=== PATIENT | female | born 1945 | race Caucasian/White ===

== ENCOUNTER → 2016-07-17 | Outpatient (CLI) | payer MEDICARE, OTHER ==
[~2016-07-17] MED LIST: AQUAPHOR OINTM396 GM TOP; COREG25 MG PO; ESTRADIOL0.5 MG PO; EXCEDRIN EXTRA1 TAB PO; HYZAAR 50-12.51 EACH PO; LOSARTAN-HCTZ1 EAC2 PO; NORCO 5-325 TA1 EACH PO; STOOL SOFTENER1 EACH PO; XELODA500 MG PO; ZOFRAN ODT8 MG PO
== END | disposition disaster alternative care site (69) ==
LOC: GBCOE 11:19
DX: Z12.31 Encounter for screening mammogram for malignant neoplasm of breast (principal)
CPT/HCPCS: G0202

== ENCOUNTER → 2016-07-31 | Day surgery (SDC) | payer MEDICARE, OTHER ==
[~2016-07-31] VITALS: Ht 160 cm; Wt 53.7 kg
== END | disposition disaster alternative care site (69) ==
LOC: GPOC 07-24 15:00 → GEND 07:05 → GPOC 07:30
PROC: 0DBP8ZX Excision of Rectum, Via Natural or Artificial Opening Endoscopic, Diagnostic (ICD-10-PCS; principal; 2016-07-31)
DX: Z12.11 Encounter for screening for malignant neoplasm of colon (principal); D12.8 Benign neoplasm of rectum; I10 Essential (primary) hypertension; Z87.891 Personal history of nicotine dependence; Z79.899 Other long term (current) drug therapy
CPT/HCPCS: J7030

== ENCOUNTER → 2016-08-06 | Outpatient (CLI) | payer MEDICARE, OTHER | END | disposition disaster alternative care site (69) | LOC: GRAD 09:29 | DX: K62.9 Disease of anus and rectum, unspecified (principal) | CPT/HCPCS: Q9967 ==

== ENCOUNTER → 2016-08-25 | Outpatient (CLI) | payer MEDICARE, OTHER ==
[2016-08-25 09:22] LABS: ALBUMIN 3.5 gm/dL (3.5-5.0); ALK PHOS 71 IU/L (33-138); ALT 16 IU/L (12-78); AST 13 IU/L (10-40); BLOOD UREA NITROGEN 14 mg/dL (6-24); CALCIUM 8.6 mg/dL (8.5-10.5); CHLORIDE 106 mMol/L (96-110); CO2 29 mMol/L (22-32); CREATININE 0.8 mg/dL (0.5-1.1); ESTIMATED GFR (MDRD EQUATION) > 60; SODIUM 141 mMol/L (135-145); TOTAL BILIRUBIN 0.8 mg/dL (0.0-1.5); TOTAL PROTEIN 6.8 g/dL (6.0-8.4)
== END | disposition disaster alternative care site (69) ==
LOC: GLAB 08:32 → GRAD 10:00
PROVIDERS: Surgery
DX: C20 Malignant neoplasm of rectum (principal); R91.8 Other nonspecific abnormal finding of lung field

== ENCOUNTER 2016-10-13 09:20 | Inpatient (IN) | payer MEDICARE, OTHER ==
[~2016-10-13] VITALS: Ht 160 cm; Wt 56.7 kg
--- NOTE | ~2016-10-13 | ER ---
PATIENT'S NAME: LAURA PEARCE [facility] AGE: 71 Y [address] ROOM: [place] [address] LOCATION: GPCU ADMIT DATE: 10/13/2016 ER/Outpatient Report DISCHARGE DATE: FAMILY PHYSICIAN: Damien Schreiber MD ATTENDING PHYSICIAN: SARAH PURCELL CHIEF COMPLAINT: Abdominal pain. HISTORY OF PRESENT ILLNESS: Ms. Pearce was at her clinic this morning for her radiation and chemotherapy when she was found to have a fever. She noted at that time that she did not have any bowel movements or flatus since Thursday. She had some diarrhea on Thursday. She has been having some GI issues with her chemo and radiation. She has rectal cancer. Since Thursday, she has had significant nausea and vomiting and states that it is even difficult to keep water down. The temperature reported from the Oncology Clinic was 101. She denies any specific complaints other than abdominal pain. She does have a history of bowel obstruction requiring surgical intervention, but this does not feel the same to her. PAST MEDICAL HISTORY: Documented on the record and reviewed by me. SOCIAL HISTORY: Documented on the record and reviewed by me. MEDICATIONS: Documented on the record and reviewed by me. ALLERGIES: DOCUMENTED ON THE RECORD AND REVIEWED BY ME. REVIEW OF SYSTEMS: All systems were reviewed and negative except as noted in the HPI. PHYSICAL EXAMINATION: VITAL SIGNS: Blood pressure 137/80, pulse 85, respiratory rate is 20, temperature 100.0, and SpO2 is 96% on room air. Pain is rated at 5/10. GENERAL: Frail, age-appropriate female, sitting in the exam table, semi- recumbent, no obvious abnormalities. NEUROLOGIC: The patient is awake and alert. GCS is 15. No focal deficits. No asymmetry. HEENT: Normocephalic, atraumatic. Eyes are PERRL. Oropharynx is clear. PATIENT'S NAME: LAURA PEARCE [facility] AGE: 71 Y [address] ROOM: [place] [address] LOCATION: GPCU ADMIT DATE: 10/13/2016 ER/Outpatient Report DISCHARGE DATE: FAMILY PHYSICIAN: Damien Schreiber MD ATTENDING PHYSICIAN: SARAH PURCELL NECK: Supple. Trachea is midline. CHEST: Heart is regular rate and rhythm with no murmurs. LUNGS: Grossly clear to auscultation bilateral with no rhonchi, wheezes, or rales. ABDOMEN: Diffusely tender. Most prominent over the suprapubic region. No rebound. Mild guarding. Markedly improved exam after pain medication. BACK: Normal to inspection and palpation. EXTREMITIES: Warm and well perfused without edema. SKIN: Does not appear to have any obvious rashes. LABORATORY DATA AND X-RAYS: Chest x-ray unremarkable per my review. Abdominal film upright reveals scant air-fluid levels. CT of the abdomen is without obvious acute abnormality. No bowel obstruction per Radiology. Procalcitonin is undetectable. CBC: White count is 1.8 with absolute neutrophils of 1.1. Hemoglobin of 12.3 and platelets of 149. INR is 1.1. Urinalysis: Leukocytes 100. Micro with 5 to 10 wbc's, 5 to 10 epithelial cells, and moderate bacteria. CMS: Potassium is 2.8. Creatinine 0.7. GFR is greater than 60. Bilirubin is 1.4 with no other significant electrolyte abnormalities. Amylase and lipase are within appropriate limits. CRP is 9.82. Lactate is 1.6. IMPRESSION: 1. Fever of unknown origin. 2. Borderline neutropenia. 3. Intractable abdominal pain. 4. Rectal cancer, currently under treatment. 5. Hypokalemia. 6. Presumed ileus. EMERGENCY DEPARTMENT COURSE: The patient was seen and evaluated as above. Bowel obstruction and other surgical cause of abdominal pain were excluded. Urinalysis is nondiagnostic. At this time, culture is pending. The patient's pain was controlled with fentanyl. She was given Zofran and fluids. She was feeling a little bit better, however, given her current presentation, I do not believe that she is a candidate for home going therapy. She will be admitted to the Hospitalist Service under the care of Dr. Purcell for further evaluation and treatment. We did initiate potassium replacement IV in the emergency department. PATIENT'S NAME: LAURA PEARCE [facility] AGE: 71 Y [address] ROOM: [place] [address] [facility] ADMIT DATE: 10/13/2016 ER/Outpatient Report DISCHARGE DATE: FAMILY PHYSICIAN: Damien Schreiber MD ATTENDING PHYSICIAN: SARAH PURCELL MD JH/geovanna /[id number] d: 10/13/16 1806 t: 11/03/16 1644, OUTPATIENT REPORT
--- NOTE | ~2016-10-13 | HP ---
PATIENT'S NAME: LAURA PEARCE [facility] AGE: 71 Y [address] ROOM: [id number] [place], [place] [address] [facility] AD[facility] DATE: 10/13/2016 History & Physical DISCHARGE DATE: FAMILY PHYSICIAN: Damien Schreiber MD ATTENDING PHYSICIAN: SARAH PURCELL DATE OF SERVICE: CHIEF COMPLAINT: Neutropenic fever, intractable nausea and vomiting, and dysuria. HISTORY OF PRESENT ILLNESS: This is a 71-year-old female, who has a past medical history remarkable for adenocarcinoma of the rectum that was diagnosed roughly three months ago, and has been on chemotherapy daily, taking three tablets every morning and two tablets every evening, but she is not sure which drug has been on for 4 weeks already. She is also on radiation therapy daily, already has been six weeks. The story is that ever since she has been on chemo and radio, the patient has been having this diffuse abdominal pain, worse in the infraumbilical area, and also frequently has loose stool with mucus and also urge to defecate after finishing having a bowel movement. She always has loose stools from the radiation. Sometimes, she will have on and off dysuria as well. However, three days ago, the patient's pain in the infraumbilical area and also in the rectal area has become worse. Then, for the last 2 days, the patient has been having this nausea and vomiting several times per day. The pain in her infraumbilical area has also gotten worse. Last time she had loose stool was 3 days ago. Today, she went to have her usual radiation therapy at Dr. Majano's office in [facility], and the patient was found to have a temperature at 101 and complaining of two days of dysuria and worsening rectal and infraumbilical abdominal pain. The patient was sent here for evaluation. Today, the patient has not had chemotherapy or radiation due to these problems. Otherwise, the patient denies any cough, shortness of breath, recent sick contact, or any other complaints. She does complain of feeling some chills, but she has not taken temperature at home. REVIEW OF SYSTEMS: As mentioned in the history of present illness. All other systems were reviewed and were negative, except those mentioned in the history of present illness. PATIENT'S NAME: LAURA PEARCE [facility] AGE: 71 Y [address] ROOM: [place] [address] LOCATION: GPCU ADMIT DATE: 10/13/2016 History & Physical DISCHARGE DATE: FAMILY PHYSICIAN: Damien Schreiber MD ATTENDING PHYSICIAN: SARAH PURCELL PAST MEDICAL HISTORY: 1. Hypertension. 2. Rectal adenocarcinoma diagnosed roughly 3 months ago, has been on chemotherapy and radiation on a daily basis, and has been taking chemotherapy for the last 4 weeks and radiation for the last 6 weeks. No metastases. ALLERGIES: NO KNOWN DRUG ALLERGIES ACCORDING TO THE PATIENT. HOME MEDICATIONS: Currently has been reconciled. SOCIAL HISTORY: The patient was a former cigarette smoker, she quit about 20 years ago. She was a former smoker about one pack per day for a few years, roughly 10. The patient was a former social alcohol drinker, but she denies any alcohol abuse. The patient denies any illegal drug use. FAMILY HISTORY: Mother from pneumonia at old age, and her father from myocardial infarction at age 60s. PAST SURGICAL HISTORY: 1. Appendectomy. 2. Total abdominal hysterectomy. PHYSICAL EXAMINATION: VITAL SIGNS: At the time of my dictation, temperature was 98.5, blood pressure was 143/87, heart rate was 86, respirations were 14, and saturation was 98% on room air. GENERAL APPEARANCE: Alert and oriented x3, in no acute distress. A very pleasant female. HEENT: Pupils were equally round and reactive to light. Extraocular muscles are intact. Anicteric sclerae. Nasal turbinates are normal bilaterally. Moist oral mucosa. NECK: No JVD. CARDIOVASCULAR: Regular rate and rhythm. Normal S1 and S2. No murmur. No rubs. No gallops. RESPIRATORY: Clear to auscultation. No rales. No rhonchi. No wheezing. No crackles. ABDOMEN: Soft and nondistended. Bowel sounds are present. No mass. She does have mild abdominal pain on palpation in the infraumbilical area. No abdominal rigidity. No ascites. EXTREMITIES: No edema in upper or lower extremities. PATIENT'S NAME: LAURA PEARCE [facility] AGE: 71 Y [address] ROOM: [place] [address] LOCATION: GPCU ADMIT DATE: 10/13/2016 History & Physical DISCHARGE DATE: FAMILY PHYSICIAN: Damien Schreiber MD ATTENDING PHYSICIAN: SARAH PURCELL NEUROLOGICAL: Grossly nonfocal. SKIN: No ulcer. No rash. No cyanosis. LABORATORY DATA: Lactic acid of 1.6. White blood cells of 1.8, hemoglobin of 12.3, hematocrit of 35.4, MCV of 86.8, and platelets of 149. Glucose was 119, BUN was 12, creatinine was 0.7, sodium was 138, potassium was 2.8, chloride was 100, CO2 was 26, calcium was 8.4, total protein was 6.4, albumin was 3.2, AST was 18, ALT was 13, alkaline phosphatase was 70, total bilirubin was 1.4, anion gap was 14.8, globulin was 3.2, and GFR was more than 60. INR is 1.12 and PTT is 24. Urinalysis showed leukocytes of 100, negative nitrite, moderate bacteria, 5 to 10 white blood cells, 25 blood, and 0 to 2 red blood cells. Amylase was 38, lipase was 141, and CRP was 9.82. Procalcitonin is less than 0.05. Absolute neutrophil count of 1.1. IMAGING STUDIES: CT of the abdomen and pelvis with contrast showed negative abdomen. Changes of previous bowel surgery with fluid in the bowel, but no evidence for obstruction. Negative pelvis. Uterus was surgically absent. KUB on admission showed no evidence of bowel obstruction. Chest x-ray on admission was clear. ASSESSMENT AND PLAN: 1. Regarding her neutropenic fever from urinary tract infection: We will continue with her IV cefepime and got 1 dose in the ED. We will continue with that. IV fluids for hydration with lactated Ringer running at 1 mL/hr. Monitor blood pressure and vital signs closely. Follow up with the urine culture and also the blood culture. Currently, the source seems to be from the urinary tract infection, given that her only complaint right now will be the dysuria. Bacteremia has to be ruled out with the blood culture. Further plan will depend on clinical course. 2. Regarding her intractable nausea and vomiting and abdominal pain and rectal pain: This is likely from the side-effects from the chemotherapy and radiation. 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 The abdominal pain is also from the radiation, given that her CT of abdomen and pelvis did not show any colitis or any obstruction. The pain of the abdomen is also in the area where she got the radiation. Her nausea and vomiting could be from radiation or could be from the chemotherapy medication. The patient does not recall the name of the medication. Therefore, I am going to consult Hematology/Oncology to help us with the management of the nausea and vomiting. For now, I will do IV Zofran p.r.n. Pain control with IV morphine p.r.n. and also IV Dilaudid p.r.n. for pain control. PATIENT'S NAME: LAURA PEARCE [facility] AGE: 71 Y [address] ROOM: [place] [address] [facility] AD[facility] DATE: 10/13/2016 History & Physical DISCHARGE DATE: FAMILY PHYSICIAN: Damien Schreiber MD ATTENDING PHYSICIAN: SARAH PURCELL 3. Regarding her hypokalemia: This is from GI loss from the nausea and vomiting, as well as the chronic loose stools. I will check loose stools for the Clostridium difficile. I will also replace her hypokalemia with IV potassium chloride. 4. Regarding her hypertension: Hold the medication for now in the setting of neutropenic fever with urinary tract infection. Home blood pressure medication can be resumed if necessary. 5. Regarding her deep venous thrombosis prophylaxis: I will use Lovenox subq, which is more effective in the setting of patient with cancer. There is no anemia. 6. Regarding her code status: The patient is full code. Time spent in the care on the day of admission was 45 minutes, where 25 minutes was spent on counseling including going over the plan of care and addressing all the questions and the concerns that the patient and the patient's had. I answered all their questions to their satisfaction. The remainder of the time was spent on interview and also on the chart review and also on the physical examination. Further plan will depend on clinical course. SARAH PURCELL MD CC/albertal /[id number] D: [id number] T: [id number] HISTORY & PHYSICAL
--- NOTE | ~2016-10-13 | CON ---
PATIENT'S NAME: ALMITA PEARCE [facility] AGE: 71 Y [address] ROOM: [id number] [place], [place] [address] LOCATION: GPCU ADMIT DATE: 10/13/2016 Consultation DISCHARGE DATE: FAMILY PHYSICIAN: Damien Schreiber MD ATTENDING PHYSICIAN: SARAH PURCELL REFERRING PHYSICIAN: Jose Nagy MD HISTORY OF PRESENT ILLNESS: Almita Pearce is a 71-year-old woman, admitted to the hospital with abdominal pain, nausea, vomiting, and diarrhea. The patient is currently on concurrent chemoradiation therapy for rectal carcinoma. Mrs. Pearce is well known to our Oncology service. The patient's last progress note, dictated as an outpatient, is appended to the chart. This note was done on 10/06/2016. The patient is currently on day 22 of a course of external beam radiation therapy and oral capecitabine initiated 09/23/2016 for rectal carcinoma. The patient currently lives in [place], [place] with her . 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 The patient was not sedentary. She had no exercise program but no practical limits. She would have a bowel movement every third day. Following documentation of her rectal cancer, the patient was placed on external beam radiation therapy. The capecitabine was initiated and the patient has been on capecitabine 875 mg/M2 p.o. b.i.d. on the days she receives radiation therapy. The patient was doing well until day 20. She had persistent hematochezia and mucus despite the initiation of radiation. However on Thursday, she started vomiting. She last vomited on day 21. She generally had dry heaves and she had no hemoptysis. Her first two episodes of vomiting were voluminous with watery contents and nothing has stayed down. The patient has experienced no fever though she has been cold and had some rigors. The patient has developed anorexia and has lost 4 pounds over the weekend and on day 19 and 20, she developed hypogastric abdominal pain. She has had rectal and vaginal soreness. She developed frequent loose stools and developed fecal incontinence. The patient has been applying a medication to her rectum and vagina for radiation therapy, which has helped. The patient has had orthostatic dizziness, nocturia, and mild dysuria. The patient developed such intense disability and weakness, she was directed to the [employer] [facility] Emergency Room where she was seen on day 21 of her course of chemotherapy, which was 10/13/2016. She was evaluated by Dr. Hager. A fever of 100 degrees was detected. Urinalysis revealed 5 to PATIENT'S NAME: ALMITA PEARCE [facility] AGE: 71 Y [address] ROOM: [id number] [place], [place] [address] LOCATION: GPCU ADMIT DATE: 10/13/2016 Consultation DISCHARGE DATE: FAMILY PHYSICIAN: Damien Schreiber MD ATTENDING PHYSICIAN: SARAH PURCELL 10 wbc's and moderate bacteria with 0 to 2 rbc's. Nitrite was negative but leukocytes were positive at 100. The white count was 1800 with 22 segs and 41 bands. The hemoglobin was 12.3 G/dL and MCV 87 and platelets 149,000. The INR was 1.12 and the PTT was 24. The general chemical profile revealed the potassium was 2.8 millimoles per L and the albumin was 3.2 G/dL. Liver function tests and renal function were unremarkable. The CRP was 9.82 mg/dL. The amylase was 38 international units/L, the lipase was 141 international units/L, and the magnesium was 1.7 mg/dL. A three-way abdomen revealed the chest film was unremarkable and the abdominal films were basically unremarkable. A few scattered nonspecific air-fluid levels but no evidence of bowel obstruction was noted. A CAT scan of the abdomen and pelvis revealed postsurgical changes in the bowel and mesentery but no findings of obstruction. The appendix is surgically absent. The pelvis was unremarkable. There was fluid in the bowel but no evidence of obstruction. Mrs. Pearce's chemoradiation was held, she was hospitalized and placed on cefepime. Mrs. 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 The tumor extends into the surgical anus and involves the left internal anal sphincter. This was diagnosed on 08/21/2016. She saw Dr. Wheeler and Gretel following documentation of the tumor and staging. As noted, the patient started her concurrent chemoradiation on 09/23/2016. ACTIVE MEDICAL PROBLEMS, CHRONIC AND DIAGNOSED: 1. Tobacco use. The patient has a [id number] smoking history but has abstained since 1979. 2. Postmenopausal state. 3. Subjective decreased auditory acuity. 4. Essential arterial hypertension. ACUTE MEDICAL ILLNESS RESOLVED, PAST SURGERIES, INJURIES: 1. 1984-NICKI with incidental appendectomy. 2. 1987-right dorsal wrist ganglion with surgery again in 1998. 3. 2006-exploratory laparotomy with release of adhesions for small bowel obstruction. 4. 2008-L5 selective nerve block. 5. 2014-lymph node biopsy Dr. Vicente Casanova. 6. 2014-left occipital nerve block with trigger point injection. 7. Tubal ligation. MEDICATIONS: Upon admission: PATIENT'S NAME: ALMITA PEARCE [facility] AGE: 71 Y [address] ROOM: [id number] [place] [id number] [facility] ADMIT DATE: 10/13/2016 Consultation DISCHARGE DATE: FAMILY PHYSICIAN: Damien Schreiber MD ATTENDING PHYSICIAN: SARAH PURCELL 1. ASA p.r.n. headaches. 2. Capecitabine. 3. Carvedilol 25 mg p.o. b.i.d. 4. Estradiol 0.5 mg p.o. q.a.m. 5. Losartan/HCTZ 50/12.5, one tab every a.m. 6. Mineral oil p.r.n. 7. Ondansetron 8 mg p.o. every 8 hours p.r.n. ADVERSE REACTIONS TO MEDICATIONS, TRANSFUSION, ALLERGIES: 1. No known allergies. 2. The patient denies any blood transfusions. TOBACCO: One pack per day for 20 years, abstained since 1979. Alcohol none now, never heavy. FAMILY HISTORY: Father of [place] in his 60s. SOCIAL HISTORY: The patient lives with her in [place], [place] and works in housekeeping at [employer]. REVIEW OF SYMPTOMS: Negative other than those noted in the history of the present illness. PHYSICAL EXAMINATION: VITAL SIGNS: Pulse 84 and regular, blood pressure 140/65, respiratory rate 16, and temperature 98.6. Height 63 inches. Weight 55.2 kg (122 pounds). BMI 21.5 kg/m2. GENERAL: Well-developed, reasonably well-nourished, 71-year-old female, and in no acute distress. HEENT: Unremarkable. No evidence of mucositis. Lymph nodes not palpable. NECK: Without JVD or carotid bruits. SKIN: Unremarkable. CHEST: Clear anteriorly. CV: Regular rhythm. No murmurs, bruits, or adventitious sounds. ABDOMEN: Bowel sounds present. Mild tenderness to deep palpation with no rebound. EXTREMITIES: Without peripheral edema. Pulses 2+ throughout. IMPRESSION: 1. Grade 3 chemoradiation abdominal pain and diarrhea. 2. Grade 3 neutropenia. 3. Grade 2 thrombocytopenia. PATIENT'S NAME: ALMITA PEARCE [facility] AGE: 71 Y [address] ROOM: [place] [address] [facility] ADMIT DATE: 10/13/2016 Consultation DISCHARGE DATE: FAMILY PHYSICIAN: Damien Schreiber MD ATTENDING PHYSICIAN: SARAH PURCELL 4. Grade 3 vomiting, resolved. RECOMMEND: Diagnostic: 1. Follow the CBC. Treatment: 1. Hold capecitabine and radiation at this point. We will reinstate when the patient has grade 1 toxicity. Patient education: 1. Discussed our endpoints here. Thanks for allowing us to help you care for Almita Pearce. JOSE NAGY MD GKB/modl /[id number] CC: Bradly Majano MD, PhD Damien Schreiber MD d: 10/16/16 0045 t: 10/16/16 1500, CONSULTATION REPORT
--- NOTE | ~2016-10-13 | DS ---
PATIENT'S NAME: LAURA PEARCE [facility] AGE: 71 Y [address] ROOM: [place] [address] LOCATION: GPCU ADMIT DATE: 10/13/2016 Discharge Summary DISCHARGE DATE: 10/17/2016 FAMILY PHYSICIAN: Damien Schreiber MD ATTENDING PHYSICIAN: Jhonny Flores PRINCIPAL DIAGNOSES: 1. Neutropenic fever. 2. Pancytopenia. 3. Nausea, vomiting, diarrhea, intractable. 4. Rectal cell carcinoma, on chemo and radiation. BRIEF HOSPITAL COURSE: Please refer to admission H and P for full history of initial presentation. This is a 71-year-old female with a known history of rectal cell carcinoma with close followup oncology clinic, who presents with nausea, vomiting, diarrhea, and fever. The patient was also found to be neutropenic upon admission. The patient was admitted for evaluation and workup of a neutropenic fever. The patient was started on broad-spectrum antibiotics with cefepime and cultures were drawn, and to date cultures, urine and blood, did not show any source of an infection. The patient was given supportive care in addition to that, and her diarrhea, nausea, and vomiting have subsided. She has not had a fever in the left 48+ hours as well. The patient was seen by Dr. Amado during her hospital stay as well. Antibiotics were stopped after she was fever free for 48 hours, and she continues to be fever free. Her white blood count is 2.0 today with ANC greater than 1000. The patient is generally doing very well, and she is being discharged in stable condition, and she will follow up with oncology office on Thursday. PHYSICAL EXAMINATION: VITAL SIGNS: The patient is afebrile. Vital signs are stable. GENERAL: Awake, alert, and oriented x3, in no distress. CHEST: Clear to auscultation bilaterally. HEART: S1, S2, regular rate and rhythm. ABDOMEN: Soft, nontender, nondistended. Positive bowel sounds. EXTREMITIES: Without edema. NEURO: Grossly nonfocal. DISPOSITION: Home. FOLLOWUP: With Oncology on 10/20/2016. Greater than 30 minutes were spent in discharge planning and facilitating. PATIENT'S NAME: LAURA PEARCE [facility] AGE: 71 Y [address] ROOM: [place] [id number] LOCATION: GPCU ADMIT DATE: 10/13/2016 Discharge Summary DISCHARGE DATE: 10/17/2016 FAMILY PHYSICIAN: Damien Schreiber MD ATTENDING PHYSICIAN: Jhonny Flores BARKOT MD ROSENDO SCHWARTZ/geovanna /[id number] d: 10/18/16 0434 t: 10/27/16 1510, DISCHARGE SUMMARY
[~2016-10-13 09:20] MED LIST changes: -AQUAPHOR OINTM396 GM TOP; -NORCO 5-325 TA1 EACH PO; -XELODA500 MG PO; -ZOFRAN ODT8 MG PO
[2016-10-13 10:00] LABS: HEMATOCRIT 35.4 % (33.0-46.0); HEMOGLOBIN 12.3 g/dL (10.0-15.0); MCH 30.1 pg (27.0-34.0); MCHC 34.7 gm/dL (32.0-36.5); MCV 86.8 fl (83.0-98.0); MPV 8.8 fl (9.4-12.4); PLATELET COUNT 149 K/uL (150-450); RBC 4.08 M/uL (3.50-5.50); RDW-CV 13.3 % (11.9-14.6)
[2016-10-13 10:01] LABS: WBC 1.8 K/uL (4.0-11.0)
[2016-10-13 10:09] LABS: INR - (THERAPEUTIC) 1.12 (0.92-1.07); PROTIME 11.8 SECONDS (9.8-11.4); PTT 24 SECONDS (25-32)
[2016-10-13 10:16] LABS: BLOOD URINE 25 /UL (NEGATIVE); COLOR URINE YELLOW (YELLOW); GLUCOSE URINE NEGATIVE (NEGATIVE); KETONE URINE 150 mg/dL (NEGATIVE); LEUKOCYTES URINE 100 /UL (NEGATIVE); NITRITE URINE NEGATIVE (NEGATIVE); PROTEIN URINE 30 mg/dL (NEGATIVE); SPEC GRAVITY URINE 1.015 (1.003-1.035); TURBIDITY URINE 1+ (CLEAR); UROBILINOGEN URINE 1 mg/dL (NORMAL)
[2016-10-13 10:18] LABS: ALBUMIN 3.2 gm/dL (3.5-5.0); ALK PHOS 70 IU/L (33-138); ALT 13 IU/L (12-78); AST 18 IU/L (10-40); BLOOD UREA NITROGEN 12 mg/dL (6-24); CALCIUM 8.4 mg/dL (8.5-10.5); CHLORIDE 100 mMol/L (96-110); CO2 26 mMol/L (22-32); CREATININE 0.7 mg/dL (0.5-1.1); ESTIMATED GFR (MDRD EQUATION) > 60; SODIUM 138 mMol/L (135-145); TOTAL PROTEIN 6.4 g/dL (6.0-8.4)
[2016-10-13 10:19] LABS: ANION GAP 14.8 (10.0-19.0); POTASSIUM 2.8 mMol/L (3.7-5.1); TOTAL BILIRUBIN 1.4 mg/dL (0.0-1.5)
[2016-10-13 10:31] LABS: AMORPHOUS URINE 1+ (NEGATIVE); BACTERIA URINE MODERATE (NEGATIVE); MUCUS URINE 3+ (NEGATIVE); RBC URINE 0-2 #/HPF (NEGATIVE)
[2016-10-13 10:43] LABS: ABSOLUTE NEUTROPHIL CT (ANC) 1.1 K/uL (1.8-7.8); BANDED NEUTROPHIL # 0.7 K/uL (0.0-0.1); BANDED NEUTROPHILS % 41 %; LYMPHOCYTE # 0.2 K/uL (0.8-4.0); LYMPHOCYTE % 9 %; MONOCYTE # 0.4 K/uL (0.0-1.0); SEGMENTED NEUTROPHIL # 0.4 K/uL (1.8-7.8); SEGMENTED NEUTROPHIL % 22 %
--- NOTE | 2016-10-13 12:53 | NUR ---
Pt is 71 y/o female admit for N/V/weakness,fevers since Thursday. is attending. No allergies. Hx rectal Ca,radiation,oral chemo,htn,arthritis, stress incontinence,nocturia. Pt alert and oriented x3. Resides at home with her spouse. Came through ED. STates she hasn't felt well since Thursday. Poor appetite due to nausea and vomiting. at bedside.
[2016-10-13] MEDS ORDERED: ZOFRAN ODT8 MG PO (14:40)
[2016-10-13] MEDS ORDERED: XELODA500 MG PO ×2 (14:42→14:44)
[2016-10-13] MEDS ORDERED: AQUAPHOR OINTM396 GM TOP (14:47)
[2016-10-14 04:28] LABS: HEMOGLOBIN 10.6 g/dL (10.0-15.0); MCH 30.2 pg (27.0-34.0); MCHC 34.2 gm/dL (32.0-36.5); MCV 88.3 fl (83.0-98.0); RBC 3.51 M/uL (3.50-5.50); RDW-CV 13.8 % (11.9-14.6)
[2016-10-14 04:31] LABS: PLATELET COUNT 96 K/uL (150-450); WBC 1.5 K/uL (4.0-11.0)
--- NOTE | 2016-10-14 04:44 | NUR ---
Significant Event:Patient A/Ox3. VSS on RA. Replaced K+ IV for 2.8, pending AM labs for recheck. Morphine x1 for abdominal cramping and tylenol x1 for low grade temp and minor pain. Patient rested well throughout the night. SBA with transfers. Follow up:Continue with ATB and monitor WBC.
[2016-10-14 04:51] LABS: ANION GAP 10.4 (10.0-19.0); BLOOD UREA NITROGEN 9 mg/dL (6-24); CALCIUM 7.5 mg/dL (8.5-10.5); CHLORIDE 110 mMol/L (96-110); CO2 24 mMol/L (22-32); CREATININE 0.6 mg/dL (0.5-1.1); ESTIMATED GFR (MDRD EQUATION) > 60; POTASSIUM 3.4 mMol/L (3.7-5.1); SODIUM 141 mMol/L (135-145)
[2016-10-14 05:26] LABS: ABSOLUTE NEUTROPHIL CT (ANC) 0.8 K/uL (1.8-7.8); BANDED NEUTROPHIL # 0.8 K/uL (0.0-0.1); BANDED NEUTROPHILS % 50 %; LYMPHOCYTE # 0.3 K/uL (0.8-4.0); LYMPHOCYTE % 18 %; MONOCYTE # 0.3 K/uL (0.0-1.0); SEGMENTED NEUTROPHIL # 0.1 K/uL (1.8-7.8); SEGMENTED NEUTROPHIL % 6 %
--- NOTE | 2016-10-14 12:23 | NUR ---
Introduced self and care management services to patient. Lives in [place] with spouse. Plans on going home on discharge, denies needs right now, says spouse will help her at home. Research Instrumentation Technician will follow and assist with dc planning as needs identified.
--- NOTE | 2016-10-14 16:09 | NUR ---
Significant Event: A/Ox3. SBP- 110-150s. P-50-70s. Afebrile. Room air. Up SBA. 6BM this shift. Cdiff negative. Vdx5. Dilaudid given x3 IVP for abdominal pain. Last dose around 1500. Continuing IV antibiotics.
--- NOTE | 2016-10-15 04:23 | NUR ---
Significant Event: A/O x3. Afebrile. C/O abd pain. Gave dilaudid x3, morphine x2. Ambu in goldsmith. VSS on RA. Hyperactive bowel sounds. LR @ 100/hr. Antibiotic infusing. BM x1. Follow up: Continue to monitor per plan of care.
[2016-10-15 04:37] LABS: HEMATOCRIT 30.2 % (33.0-46.0); HEMOGLOBIN 10.4 g/dL (10.0-15.0); MCH 30.3 pg (27.0-34.0); MCHC 34.4 gm/dL (32.0-36.5); MPV 8.8 fl (9.4-12.4); PLATELET COUNT 104 K/uL (150-450); RBC 3.43 M/uL (3.50-5.50); RDW-CV 13.8 % (11.9-14.6)
[2016-10-15 04:58] LABS: ALBUMIN 2.1 gm/dL (3.5-5.0); BLOOD UREA NITROGEN 6 mg/dL (6-24); CALCIUM 7.4 mg/dL (8.5-10.5); CHLORIDE 106 mMol/L (96-110); CO2 25 mMol/L (22-32); CREATININE 0.5 mg/dL (0.5-1.1); ESTIMATED GFR (MDRD EQUATION) > 60; MAGNESIUM 1.7 mg/dL (1.8-2.6); PHOSPHORUS 1.6 mg/dL (2.5-4.9); SODIUM 139 mMol/L (135-145)
[2016-10-15 05:16] LABS: BANDED NEUTROPHIL # 0.6 K/uL (0.0-0.1); BANDED NEUTROPHILS % 31 %; LYMPHOCYTE # 0.6 K/uL (0.8-4.0); LYMPHOCYTE % 28 %; MONOCYTE # 0.2 K/uL (0.0-1.0); SEGMENTED NEUTROPHIL # 0.3 K/uL (1.8-7.8); SEGMENTED NEUTROPHIL % 17 %
--- NOTE | 2016-10-15 18:45 | NUR ---
Significant Event: SBP 130-180'S CONTROLLED WITH COREG. NSR RATES 60-70'S. AFEBRILE. ON RA. ABD PAIN CONTROLLED WITH DILAUDID 0.5MG Q3HR LAST AROUND 1530. NS WITH 40MEQ KCL AT 100ML/HR X 1LITER VIA L) HAND PIV THEN NS AT 75ML/HR.2GRAM MG IV GIVEN WELL. IV ATB CEFEPIME DC'D. PIV TO R) WRIST SL'D. AMBULATES INDEPENDENTLY IN ROOM, TOOK OWN SHOWER TODAY. CONTINUES ON CLEAR LIQUID WITH MINIMAL INTAKE. PATIENT STATES RESTING WELL THIS AFTERNOON. Follow up: CONT TO MONITOR PER PLAN OF CARE. DILAUDID FOR PAIN CONTROL.
[2016-10-16 03:54] LABS: HEMATOCRIT 29.8 % (33.0-46.0); HEMOGLOBIN 10.3 g/dL (10.0-15.0); MCH 30.1 pg (27.0-34.0); MCHC 34.6 gm/dL (32.0-36.5); MCV 87.1 fl (83.0-98.0); MPV 8.5 fl (9.4-12.4); PLATELET COUNT 115 K/uL (150-450); RBC 3.42 M/uL (3.50-5.50); RDW-CV 13.5 % (11.9-14.6)
[2016-10-16 04:05] LABS: BLOOD UREA NITROGEN 5 mg/dL (6-24); CALCIUM 7.2 mg/dL (8.5-10.5); CHLORIDE 107 mMol/L (96-110); CO2 25 mMol/L (22-32); CREATININE 0.4 mg/dL (0.5-1.1); ESTIMATED GFR (MDRD EQUATION) > 60; PHOSPHORUS 1.5 mg/dL (2.5-4.9); SODIUM 139 mMol/L (135-145)
--- NOTE | 2016-10-16 05:01 | NUR ---
Significant Event: PATIENT IS A/O X3. VSS. HR 60-70'S. SBP 130-150'S. AFEBRILE. 02 SATS IN MID 9O'S ON RA. C/O PAIN TO ABDOMEN. IVP DILAUDID GIVEN X2 WITH SOME RELIEF. LUNGS CLEAR/DIM THROUGHOUT. UP AD PAVEL IN ROOM. BOWELS ACTIVE. DECREASED APPETITE. VOIDS PER RESTROOM. IV TO LEFT WRIST WITH NS AT 75 ML/HR AND RIGTH WRIST SL. Follow up: CONTINUE TO MONITOR PER PLAN OF CARE.
[2016-10-16 05:20] LABS: BANDED NEUTROPHIL # 0.7 K/uL (0.0-0.1); BANDED NEUTROPHILS % 34 %; LYMPHOCYTE # 0.2 K/uL (0.8-4.0); LYMPHOCYTE % 11 %; MONOCYTE # 0.5 K/uL (0.0-1.0); SEGMENTED NEUTROPHIL # 0.4 K/uL (1.8-7.8); SEGMENTED NEUTROPHIL % 18 %
--- NOTE | 2016-10-16 14:58 | NUR ---
Significant Event: A/O. VSS on RA. 07/28 abd pain relived with dilaudid x1. Offer norco this afternoon but patient refused intervention. Tolerating clear liquid. Advanced to full liquid which will start tonight. No BMs. Up with 1 assist. Follow up: possible dismissal tomorrow if tolerating PO
[2016-10-17 03:55] LABS: HEMATOCRIT 29.8 % (33.0-46.0); HEMOGLOBIN 10.5 g/dL (10.0-15.0); MCH 30.8 pg (27.0-34.0); MCHC 35.2 gm/dL (32.0-36.5); MCV 87.4 fl (83.0-98.0); PLATELET COUNT 125 K/uL (150-450); RBC 3.41 M/uL (3.50-5.50); RDW-CV 13.7 % (11.9-14.6); WBC 2.7 K/uL (4.0-11.0)
[2016-10-17 04:15] LABS: ANION GAP 9.2 (10.0-19.0); BLOOD UREA NITROGEN 6 mg/dL (6-24); CHLORIDE 110 mMol/L (96-110); CO2 24 mMol/L (22-32); CREATININE 0.3 mg/dL (0.5-1.1); ESTIMATED GFR (MDRD EQUATION) > 60; MAGNESIUM 1.8 mg/dL (1.8-2.6); POTASSIUM 3.2 mMol/L (3.7-5.1); SODIUM 140 mMol/L (135-145)
[2016-10-17 04:16] LABS: CALCIUM 7.2 mg/dL (8.5-10.5); PHOSPHORUS 1.4 mg/dL (2.5-4.9)
--- NOTE | 2016-10-17 04:36 | NUR ---
Significant Event: PATIENT IS A/O X3. VSS. HR 70'S. SBP 130-170'S. AFEBRILE. 02 SATS IN LOW TO MID 90'S ON RA. C/O ABDOMINAL PAIN. 1 TAB NORCO GIVEN X1 WITH SOME RELIEF. LUNGS CLEAR/DIM THROUGHOUT. UP AD PAVEL IN ROOM. BOWELS ACTIVE. DECREASED APPETITE. VOIDS PER RESTROOM. IV RIGHT WRIST SL AND LEFT FOREARM WITH NS AT 75 ML/HR. Follow up: CONTINUE TO MONITOR. POSSIBLY HOME TODAY.
[2016-10-17 06:10] LABS: ABSOLUTE NEUTROPHIL CT (ANC) 1.6 K/uL (1.8-7.8); BANDED NEUTROPHIL # 1.1 K/uL (0.0-0.1); BANDED NEUTROPHILS % 40 %; LYMPHOCYTE # 0.2 K/uL (0.8-4.0); LYMPHOCYTE % 7 %; MONOCYTE # 0.6 K/uL (0.0-1.0); SEGMENTED NEUTROPHIL # 0.5 K/uL (1.8-7.8); SEGMENTED NEUTROPHIL % 20 %
--- NOTE | 2016-10-17 12:45 | NUR ---
Spoke with patient and she plans home today. Says and family will assist as needed. Denies discharge needs at this time. Says her is coming to get her.
[2016-10-17] MEDS ORDERED: NORCO 5-325 TA1 EACH PO (13:18)
--- NOTE | 2016-10-17 14:12 | NUR ---
Significant Event: PT A&O x3. VSS, on room air. Pain well controlled with norco 1 tab at 0930. Minimal appetite, nausea controlled with zofran. Up ad oscar in room and goldsmith. IVx2 dc'd. Dismissal instructions/prescriptions given to PT/spouse, voiced understanding. PT wheeled to front lobby by MAINFRAME ANALYST and dismissed to home. Follow up:
== END 2016-10-17 13:55 | disposition disaster alternative care site (69) | DRG 871 ==
LOC: GMED 09:20 → GPCU 11:54
PROVIDERS: Emergency Medicine; Internal Medicine; ADMIT Internal Medicine
DX: A41.9 Sepsis, unspecified organism (principal); D61.810 Antineoplastic chemotherapy induced pancytopenia; C20 Malignant neoplasm of rectum; N39.0 Urinary tract infection, site not specified; E87.6 Hypokalemia; K62.7 Radiation proctitis; T45.1X5A Adverse effect of antineoplastic and immunosuppressive drugs, initial encounter; R19.8 Other specified symptoms and signs involving the digestive system and abdomen; I95.1 Orthostatic hypotension; Z87.891 Personal history of nicotine dependence
CPT/HCPCS: C9113; J0692; J1170; J1650; J2270; J2405; J3010; J3475; J3480; J7030; J7040; J7050; J7120; J8521; Q9967